=== PATIENT | female | born 1955 | race Caucasian/White ===

== ENCOUNTER 2024-12-03 11:40 | Outpatient (AMB) | payer MEDICARE, SELFPAY ==
--- NOTE | 2024-12-03 11:46 | MHC.OFFWIV ---
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 Patient Tobacco Use Status: Never used Tobacco Allergies lisinopril Adverse Reaction (Mild, Uncoded 12/03/24 11:47) cough Do you need a note to return to daycare/school/sports/work: No HPI HPI Comments History of Present Illness Details History - The patient is a 68-year-old female presenting with chronic cough, hoarse voice, and symptoms suggestive of allergies. - She reports these symptoms have persisted since her arrival at her children's home on November 08 and have included nasal congestion and watery, sticky eyes. - Despite her utilization of Cetirizine (Zyrtec), she experiences only slight nasal decongestion, with symptoms unabated. - She reports no associated shortness of breath, chest pain, or dizziness. - A family history of similar symptoms in her grandson, considered to be linked to potential exposure to mold, was noted, yet symptoms persist despite relocation to another residence. - Environmental factors, particularly exposure to an allerg[place] or a mold-contaminated residence, are thought to contribute to her symptoms. - The patient has a thyroid disorder managed with levothyroxine, with her last medication adjustment a year ago. - She has observed elevated heart rates, fluctuating between 90-125 bpm, yet has not been recently assessed by her physician, with undetermined links to thyroid imbalance. Physical Exam General: Cooperative, healthy appearing, comfortable and no acute distress Orientation/consciousness: Patient oriented x3 Limitations: No limitations Head: Normal to inspection Ears: Hearing grossly normal bilaterally, external ears normal and TM's with cerumen bilaterally Nose: Normal external nose present, Normal nares present and No nasal discharge present Face and sinus: Normal facial exam and Yes sinuses nontender Mouth: Normal oral and palatal mucosa present and moist mucous membranes Throat: Yes tonsils normal, Yes uvula midline. Posterior oropharynx erythema, cobblestoning present Eyes: Appearance normal, both eyes and all related structures, Neck: Normal visual inspection Respiratory: Clear to auscultation bilaterally. Normal respiratory effort, able to speak in complete sentences, no respiratory distress, not tachypneic, no tripod positioning and no use of accessory muscles Cardiovascular: tachycardic rate and regular rhythm. Normal S1 and S2 Skin: No rashes or lesions noted Neuro: Patient oriented x3 Extremities: Normal to inspection and Yes no clubbing, cyanosis or edema PFSH Social History Patient Tobacco Use Status: Never used Tobacco Review of Systems Const All systems reviewed & are unremarkable except as noted in HPI and below Physical Exam Vital Signs: Last Vital Signs Temp 99 F 12/03/24 11:48 Pulse 120 H 12/03/24 11:48 BP 120/76 12/03/24 11:48 Pulse Ox 96 12/03/24 11:48 Oxygen Delivery Method Room Air 12/03/24 11:48 Assessment & Plan Assessment & Plan (1) Seasonal allergic rhinitis: Code(s): J30.2 - Other seasonal allergic rhinitis Qualifiers: Allergic rhinitis trigger: unspecified Qualified Code(s): J30.2 - Other seasonal allergic rhinitis Plan: VSS, pt well appearing and PE remarkable for cobblestoning. The patient's chronic cough, nasal congestion, and associated symptoms are consistent with allergic rhinitis, likely aggravated by environmental exposure. An increased frequency of Cetirizine Zyrtec) to twice daily is recommended with the potential switch to Xyzal Levocetirizine) if necessary, while she is advised to use a nasal saline spray to maintain nasal moisture and relieve congestion. Patient was informed and verbally consented to the use of an ambient scribe for clinic note documentation during this visit (2) Sinus tachycardia: Code(s): R00.0 - Tachycardia, unspecified Plan: Adjustments to her levothyroxine treatment should be considered with her primary care provider upon returning home, especially to address the possible contribution to her tachycardia. Current tachycardia is acknowledged, with heart rate adjustments expected post-environmental factor resolution, requiring further evaluation in conjunction with her primary care guidance. Coding Level of Care Code New Pt Level 4 (24035) Diagnoses Seasonal allergic rhinitis, unspecified trigger J30.2 Allergic rhinitis trigger: unspecified Sinus tachycardia R00.0
[2024-12-03 11:48] VITALS: BP 120/76; PULSE 115; TEMP 37.2; O2SAT 96
--- OUTSIDE RECORDS SUMMARY | 2024-12-03 14:11 | XMS_ITS | Referral Summary ---
Author Organization [facility] Address [address] [place] [id number] Care Team Providers Care Manager Strategic Alliances Name Role Phone Stacey Henderson MD Primary Care Provider [phone] Encounters Date Type Department Care Team Description 11/23/2024 10:46 PM EDT - 11/23/2024 11:59 PM EDT Hospital Encounter [facility] [place] [address] [address] Stacey Henderson MD Discharge Disposition: Home or Self Care 11/16/2024 Refill [facility] [address] [place] [phone] Stacey Henderson MD Medication Refill 11/06/2024 Refill [facility] [address] [place] [phone] Stacey Henderson MD Medication Refill 10/23/2024 2:15 PM EDT Office Visit [facility] [address] [place] [phone] Stacey Henderson MD 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); Primary hypertension; Generalized anxiety disorder; Throat clearing 10/22/2024 Travel 10/15/2024 Travel 10/12/2024 Travel 10/11/2024 Refill [facility] [address] [place] [phone] Stacey Henderson MD Medication Refill 10/05/[address] [place] [phone] Staecy Henderson MD Medication Refill 10/04/2024 Refill [facility] [address] [place] [phone] Stacey Henderson MD Medication Refill 09/29/[address] [place] [phone] Stacey Henderson MD Medication Refill 09/10/[address] [place] [phone] Stacey Henderson MD Medication Refill 09/06/[address] [place] [phone] Stacey Henderson MD Medication Refill from Last 3 Months Allergies Active Allergy Reactions Criticality Noted Date Comments Lisinopril Low 02/01/2022 Cough Medications cholecalciferol (Vitamin D3) 2,000 unit tablet Take 4,000 Units by mouth daily. Active montelukast (SINGULAIR) 10 mg tabletIndication s:Throat clearing,Mild intermittent asthma without complication (CMD) TAKE 1 TABLET BY MOUTH EVERY DAY AT NIGHT 90 tablet 3 03/27/20 24 Active denosumab (Prolia) 60 mg/mL syrg syringe Inject 60 mg under the skin once. Active citalopram (CeleXA) 20 mg tabletIndication s:Generalized anxiety disorder TAKE 1 TABLET BY MOUTH EVERY DAY 90 tablet 09/30/19 25 Active tretinoin (Retin-A) 0.05 % cream APPLY TO AFFECTED AREA EVERY DAY AT BEDTIME 45 g 10/04/19 25 Active dextroamphetamin e-amphetamine (ADDERALL) 5 mg tablet Take 1 tablet (5 mg total) by mouth 2 (two) times a day. 60 tablet 10/24/19 25 Active clonazePAM (KlonoPIN) 1 mg tabletIndication s:Generalized anxiety disorder Take 1 tablet (1 mg total) by mouth daily as needed for anxiety. 30 tablet 10/24/19 25 Active meloxicam (MOBIC) 15 mg tablet TAKE 1 TABLET (15 MG TOTAL) BY MOUTH DAILY. 30 tablet 11/07/19 25 Active levothyroxine (SYNTHROID) 75 mcg tablet TAKE 1 TABLET BY MOUTH EVERY DAY 90 tablet 11/19/19 25 Active losartan (COZAAR) 50 mg tablet Take 1 tablet (50 mg total) by mouth daily. 30 tablet 11/23/19 25 Active levothyroxine (SYNTHROID) 75 mcg tablet TAKE 1 TABLET BY MOUTH EVERY DAY 90 tablet 1 05/13/20 24 025 Discontinued meloxicam (MOBIC) 15 mg tablet TAKE 1 TABLET (15 MG TOTAL) BY MOUTH DAILY. 30 tablet 10/07/19 25 025 Discontinued losartan (COZAAR) 50 mg tablet Take 1 tablet (50 mg total) by mouth daily. 90 tablet 1 10/24/19 25 025 Discontinued(Re order) benzonatate (TESSALON) 200 mg capsule Take 1 capsule (200 mg total) by mouth 3 (three) times a day as needed for cough. 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 Anxiety disorder 10/03/2022 Diverticular disease 10/03/2022 Hypertension 10/03/2022 Hypothyroidism 10/03/2022 Prediabetes 10/03/2022 Laryngopharyngeal reflux 02/01/2022 Throat clearing 02/01/2022 Right shoulder pain 08/02/2021 Immunizations Immunization Administration Dates Next Due Pneumococcal Conjugate Vacci ne 20-Valent (PREVNAR-20) 6 wks+ 10/03/2022 Social History Tobacco Use Types Packs/Day Years Used Date Smoking Tobacco: Never Passive Smoke Exposure: Never Smokeless Tobacco: Never Tobacco Cessation:Counseling Given: Not Answered Comments:Never smoked Alcohol Use Standard Drinks/Week Comments Never 0 (1 standard drink = 0.6 oz pur e alcohol) Utilities Answer Date Recorded In the past 12 months has th e electric, gas, oil, or water company threatened to shut off services in your home? No 04/24/2023 Social Connection and Isolation Panel [NHANES] A nswer Date Recorded Frequency of Communication with Friends and Fami ly Not on file 09/25/2022 Frequency of Social Gatherings with Friends and Family Not on file 09/25/2022 Attends Gnosticist Services Not on file 09/25 Active Member of Clubs or Organizations Not on f ile 09/25/2022 Attends Club or Organization Meetings Not on luciano e 09/25/2022 Are you , , di vorced, , never , or living with a partner? 09/25/2022 AUDIT-C Answer Date Recorded Frequency of Alcohol Consumption Not on file 09/25/2022 Q2: How many drinks containi ng alcohol do you have on a typical day when you are drinking? Patient does not drink Q3: How often do you have si x or more drinks on one occasion? Never 09/25/2022 PHQ-2 Answer Date Recorded Patient Health Questionnaire-2 Score 1 02/14/2024 [facility] - Occupational Stress Questionnaire Answer Date Recorded Do you feel stress - tense, restless, nervous, or anxious, or unable to sleep at night because your mind is troubled all the time - these days? To some extent 09/25/2022 Exercise Vital Sign Answer Date Recorde d On average, how many days pe r week do you engage in moderate to strenuous exercise (like a brisk walk)? 6 days Minutes of Exercise per Session Not on file 09/25/2022 Hunger Vital Sign Answer Date Recorded Within the past 12 months, y ou worried that your food would run out before you got the money to buy more. Never true 04/24/20 23 Within the past 12 months, t he food you bought just didn't last and you didn't have money to get more. Never true 04/24/2023 PRAPARE - Transportation Answer Date Re corded In the past 12 months, has l ack of transportation kept you from medical appointments or from getting medications? No 04/14 In the past 12 months, has l ack of transportation kept you from meetings, work, or from getting things needed for daily living? No 04/24/2023 Housing Stability Vital Sign Answer Mehdi e Recorded In the last 12 months, was t here a time when you were not able to pay the mortgage or rent on time? No 04/24/2023 In the last 12 months, how many places have you lived? 2 04/24/2023 In the last 12 months, was t here a time when you did not have a steady place to sleep or slept in a senior care (including now)? No 04/24/2023 PHQ-9 Answer Date Recorded Patient Health Questionnaire-9 Score 2 02/14/2024 Transportation Answer Date Recorded In the past 12 months, has l ack of reliable transportation kept you from medical appointments, meetings, work or from getting things needed for daily living? No 10/12/2024 Living Situation Answer Date Recorded What is your living situation today? [facility] place to live 10/12/[address] you li ve. Do you have problems with any of the following? Choose all that apply: None/None on this list 10/12/2024 Food vital sign Answer Date Recorded Within the past 12 months, y ou worried that your food would run out before you got money to buy more Never true 10/12/2024 Within the past 12 months, t he food you bought just didn't last and you didn't have money to get more. Never true 10/12/2024 Utilities Answer Date Recorded In the past 12 months has th e electric, gas, oil, or water company threatened to shut off services in your home? No 10/12/2024 Comments Unknown Sex and Gender Information Value Date Recorded Sex Assigned at Female 08/19/2021 7:20 AM EST Legal Sex Female 3:11 PM EST Gender Identity Not on file Sexual Orientation Straight 08/11/2022 1: 02 PM EST Last Filed Vital Signs Vital Sign Reading Time Taken Comments Blood Pressure 150/90 10/23/2024 2:36 PM EDT Pulse 85 10/23/2024 2:20 PM EDT Temperature 36.4 ??C (97.5 ??F) 10/23/2024 2:20 PM ED T Respiratory Rate - - Oxygen Saturation 97% 10/23/2024 2:20 PM EDT Inhaled Oxygen Concentration - - Weight 71.5 kg (157 lb 9.6 oz) 10/23/2024 2:20 P M EDT Height 157.5 cm (5' 2 ) 02/14/2024 10:51 AM EDT Body Mass Index 28.83 02/14/2024 10:51 AM EDT Plan of Treatment Not on file Procedures Procedure Name Priority Date/Time Associated Diagnosis Comments COMPREHENSIVE METABOLIC PANEL Routine 06/26/2024 2:22 PM EST Primary hypertension MG BREAST SCREENING CRUZ BILAT Routine 11/25/2023 8:54 AM EDT DEXA SCAN 1 OR MORE SITES AXIAL Routine 11/24/2022 8:59 AM EDT from Last 3 Months or Most Recently Relevant to Health Maintenance Results * Comprehensive Metabolic Panel (06/26/2024 2:22 PM EST) Sodium 137 134 - 143 mmol/L 06/26/2024 11:36 PM EST [facility] Potassium 4.3 3.5 - 5.1 mmol/L 06/26/2024 11:36 PM EST [facility] Chloride 103 98 - 107 mmol/L 06/26/2024 11:36 PM EST [facility] CO2 24 21 - 31 mmol/L 06/26/2024 11:36 PM EST [facility] Anion Gap 10 3 - 15 mmol/L 06/26/2024 11:36 PM EST [facility] Glucose, Random 113 70 - 125 mg/dL 06/26/2024 11:36 PM [facility] Blood Urea Nitrogen (BUN) 25 8 - 30 mg/dL 06/26/2024 11:36 PM EST [facility] Creatinine 0.70 0.51 - 0.95 mg/dL 06/26/2024 11:36 PM EST [facility] eGFR >90 >59 mL/min/1. 73m2 06/26/2024 11:36 PM EST [facility] Comment:GFR estimated by CKD -EPI equations (NKF 2020). Recommend confirmation of eGFR using Cystatin C based eGFR in complex cases for clinical decision-making. Albumin 4.5 3.7 - 4.8 g/dL 06/26/2024 11:36 PM EST [facility] Total Protein 7.5 6.3 - 8.3 g/dL 06/26/2024 11:36 PM EST [facility] Bilirubin, Total 0.3 0.3 - 1.0 mg/dL 06/26/2024 11:36 PM EST [facility] Alkaline Phosphatase (ALP) 64 38 - 120 U/L 06/26/2024 11:36 PM EST [facility] Aspartate Aminotransferase (AST) 17 13 - 39 U/L 06/26/2024 11:36 PM EST [facility] Alanine Aminotransferase (ALT) 19 7 - 52 U/L 06/26/2024 11:36 PM EST [facility] Calcium 9.8 8.6 - 10.3 mg/dL 06/26/2024 11:36 PM [facility] BUN/Creatinine Ratio 06/14 11:36 PM EST [facility] Comment:Creatinine is normal , ratio is not clinically indicated. Blood Venous structure / Unknown Venipuncture / Unknown 06/26/2024 2:22 PM EST 06/26/2024 2:22 PM EST Stacey Henderson MD LAB BLOOD ORDERABLES F inal Result [facility] [address] [place] [address], * MG Breast Screening Cruz Bilat (11/25/2023 8:54 AM EDT) Anatomical Region Laterality Modality Breast Bilateral Mammography 11/23/2023 3:33 PM EDT Narrative 11/23/2023 3:46 PM EDT STACEY HENDERSON MD ?[facility] ?[phone] ? [address] ? [address] ? [place] [address] ?1955 ? Patient ??MARLYN MATOS ? Jkt# ? Exam Date ??11-23-2023 03 30 PM ?Visit ??[id number] ?? Order ??[id number] Screening Mammogram with Cruz BILATERAL ??November 23, 2023 - [id number] PATIENT HISTORY Postmenopausal. Patient used Estrogen for 4 years. REASON FOR EXAM ??Screening ?? asymptomatic . COMPARISON ?? 03-14-2019 Bilateral Screening 3D-Tomosynthesis, Unknown. 11-08-2021 Bilateral Screening Mammogram with Cruz BILATERAL, BAT. 11-09-2022 Bilateral Screening Mammogram with Cruz BILATERAL, [facility]. DENSITY ??The breasts are heterogeneously dense, which may obscure small masses. ?? Volpara score 7.9 FINDINGS ?? Bilateral Screening Mammogram with Tomosynthesis was performed. Analyzed by CAD. No evidence of breast cancer. RECOMMENDATION ?? Screening 3D-Tomosynthesis of both breasts in 1 year. BIRAD 1 ??Negative Seat ??[id number] Report Electronically signed by ??Emely Yuan, DO Completed By ??Angelique RAMÍREZ ??2023-11-25 08 53 00 ?? Procedure Note Emely Yuan DO - 11/25/2023 MD SHOAIB JENKINS [facility] [phone] [place] [id number]1956 Patient MARLYN MATOS# Exam Date 11-23-2023 03 30 PM [id number] Order [id number] Screening Mammogram with Cruz BILATERAL November 23, 2023 - PATIENT HISTORY Postmenopausal. Patient used Estrogen for 4 years. REASON FOR EXAM Screening asymptomatic . COMPARISON 03-14-2019 Bilateral Screening 3D-Tomosynthesis, Unknown. [id number] Screening Mammogram with Cruz BILATERAL, BAT. 11-09-2022 Bilateral Screening Mammogram with TomoBILATERAL, [facility]. DENSITY The breasts are heterogeneously dense, which may obscure smallmasses. Volpara score 7.9 FINDINGS Bilateral Screening Mammogram with Tomosynthesis was performed. Analyzedby CAD. No evidence of breast cancer. RECOMMENDATION Screening 3D-Tomosynthesis of both breasts in 1 year. BIRAD 1 Negative Seat [id number] Report Electronically signed by Emely Yuan DO Completed By Angelique RAMÍREZ 2023-11-25 08 53 00 us Neg Scrn Mammo Clt Rad AH IMG MG PROCEDURES Fatmata l Result * DEXA Scan 1 or More Sites Axial (11/24/2022 8:59 AM EDT) Anatomical Region Laterality Modality Radiographic Josie ging 11/15/2022 3:49 PM EDT Narrative 11/15/2022 3:49 PM EDT STACEY HENDERSON MD ?[facility] [facility] ?780/[address] ? [address] ? [address] ? [place] [address] ? : 1955 ? Patient: MARLYN MATOS ? Jkt#: ? Exam Date: 11/15/2022 03:40 PM ?Visit: [id number] ?? Order: [id number] DATE OF SERVICE: 11/15/2022 3:49 pm EXAMINATION PERFORMED: Bone Mineral Density Axial CLINICAL HISTORY: 66 year old female. Postmenopausal. Screening. Surgical instrumentation right proximal femur. CURRENT STUDY: Spine: 1-4 * BMD (g/cm2) : 0.899 * T-score : -1.3 * Z-score : 0.5 Femur: LTn * BMD (g/cm2) : 0.558 * T-score : -2.6 * Z-score : -1.0 Forearm: NA * BMD (g/cm2) : NA * T-score : NA * Z-score : NA COMMENTS: None Precision of instrumentation has been considered with a 95% coefficient of variation and least significant change of +/- 5%. Study performed on [employer] DXA system. FRACTURE RISK: The WHO fracture risk calculator (FRAX) predicts a 10 year risk of major osteoporotic fracture of 14% and of hip fracture, 3.2%. These are below the osteoporotic fracture and above the hip fracture NOF-recommended treatment thresholds of 20% and 3% respectively, applicable in postmenopausal patients with osteopenia, who have not previously received osteoporosis medical therapy. FRAX risk is calculated based on data provided by the patient at time of scan. ??Clinical confirmation of risk factors is recommended. Although informative, the FRAX risk calculator is a tool, and other risk factors not included in FRAX calculation, such as fall risk or spine BMD, as well as clinicians judgment and patient preferences should be considered to drive therapeutic decisions. DIAGNOSIS: Osteoporosis RECOMMENDATION: Continued Surveillance in 2 years. Thank you for the courtesy of this referral. *World Health Organization Definitions for T-Score Values: Normal= at or above - 1.0 SD; Osteopenia= between -1.0 and -2.5 SD; Osteoporosis= at or below -2.5. WHO criteria based on young adult reference database. Seat: [id number] Dictated by: Juan Pappas Report Electronically signed by: Juan Pappas MD Completed By: Augusta Goodson DT: 2022-11-24 08:59:00 ?? Procedure Note Juan Pappas MD - 11/24/2022 STACEY HENDERSON, [facility] [address] [place] [address] :1955 Patient: MARLYN MATOS#: Exam Date: 11/15/2022 03:40 PM Visit:[id number] Order: [id number] DATE OF SERVICE: 11/15/2022 3:49 pm EXAMINATION PERFORMED: Bone Mineral Density Axial CLINICAL HISTORY: 66 year old female. Postmenopausal. Screening. Surgical instrumentationright proximal femur. CURRENT STUDY: Spine: 1-4 * BMD (g/cm2) : 0.899 * T-score : -1.3 * Z-score : 0.5 Femur: LTn * BMD (g/cm2) : 0.558 * T-score : -2.6 * Z-score : -1.0 Forearm: NA * BMD (g/cm2) : NA * T-score : NA * Z-score : NA COMMENTS: None Precision of instrumentation has been considered with a 95% coefficient ofvariation and least significant change of +/- 5%. Study performed on [employer] DXA system. FRACTURE RISK: The WHO fracture risk calculator (FRAX) predicts a 10 year risk of majorosteoporotic fracture of 14% and of hip fracture, 3.2%. These are belowthe osteoporotic fracture and above the hip fracture NOF-recommendedtreatment thresholds of 20% and 3% respectively, applicable in postmenopausal patients with osteopenia, whohave not previously received osteoporosis medical therapy. FRAX risk is calculated based on data provided by the patient at time ofscan. Clinical confirmation of risk factors is recommended. Although informative, the FRAX risk calculator is a tool, and other riskfactors not included in FRAX calculation, such as fall risk or spine BMD,as well as clinicians judgment and patient preferences should beconsidered to drive therapeutic decisions. DIAGNOSIS: Osteoporosis RECOMMENDATION: Continued Surveillance in 2 years. Thank you for the courtesy of this referral. *World Health Organization Definitions for T-Score Values: Normal= at orabove - 1.0 SD; Osteopenia= between -1.0 and -2.5 SD; Osteoporosis= at orbelow -2.5. WHO criteria based on young adult referencedatabase. Seat: [id number] Dictated by: Juan Pappas Report Electronically signed by: Juan Pappas MD Completed By: Augusta Goodson DT: 2022-11-24 08:59:00 Stacey Henderson MD IMG DEXA PROCEDURES Fi nal Result from Last 3 Months or Most Recently Relevant to Health Maintenance Insurance [facility] MEDICARE COMPLETE [place] [facility] MEDICARE COMPLETE [place] Care Teams Manager Strategic Alliances Relationship Specialty Start Date End Date Stacey Henderson MD [address] [place] [phone] PCP - General Family Medicine 08/24/21
--- OUTSIDE RECORDS SUMMARY | 2024-12-03 14:11 | XMS_ITS | Clinical Summary ---
Author Organization [facility] Address [address] [place] [address] Care Team Providers Care Brakeshoe Repairer Name Role Phone Stacey Henderson MD Primary Care Provider +1 [phone] Allergies Active Allergy Reactions Criticality Noted Date [...] as needed for cough. 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 Anxiety disorder 10/03/2022 Diverticular disease 10/03/2022 Hypertension 10/03/2022 Hypothyroidism 10/03/2022 Prediabetes 10/03/2022 Laryngopharyngeal reflux 02/01/2022 Throat clearing 02/01/2022 Right shoulder pain 08/02/2021 Encounters Date Type Department Care Team Description 11/23/2024 10:46 PM EDT - 11/23/2024 11:59 PM EDT Hospital Encounter [facility] [address] [facility] [address] [address] Stacey Henderson MD Discharge Disposition: Home or Self Care 11/16/[address] [place] [phone] Stacey Henderson MD Medication Refill 11/06/[address] [place] [phone] Stacey Henderson MD Medication Refill 10/23/2024 2:15 PM EDT Office Visit [address] [place] [address] [place] [address] Stacey Henderson MD 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); Primary hypertension; Generalized anxiety disorder; Throat clearing 10/22/2024 Travel 10/15/2024 Travel 10/12/2024 Travel 10/11/2024 Refill [facility] [address] [place] [address] Stacey Henderson MD Medication Refill 10/05/2024 Refill [facility] [address] [place] [phone] Stacey Henderson MD Medication Refill 10/04/2024 Refill [facility] [address] [place] [phone] Stacey Henderson MD Medication Refill 09/29/2024 Refill [facility] [address] [place] [phone] Stacey Henderson MD Medication Refill 09/10/2024 Refill [facility] [address] [place] [phone] Stacey Henderson MD Medication Refill 09/06/2024 Refill [facility] [address] [place] [phone] Stacey Henderson MD Medication Refill from Last 3 Months Immunizations Immunization Administration Dates Next Due Pneumococcal Conjugate Vacci ne 20-Valent (PREVNAR-20) 6 wks+ 10/03/2022 Family History Medical History Relation Comments Cancer Brother 1 Early Brother 1 Diabetes Brother 2 Hypertension Brother 2 Alcohol abuse Father Cancer Father Diabetes Father Depression Mother Hypertension Mother Stroke Mother Asthma Son Relation Status Comments Brother 1 Brother 2 Father Mother Son Social History Tobacco Use Types Packs/Day Years [...] and Family Not on file 09/25/2022 Attends [employer] Not on file 09/25 Active Member [...] Recorded Patient Health Questionnaire-2 Score 1 02/14/2024 [facility] - Occupational Stress Questionnaire Answer Date [...] place to sleep or slept in a alf (including now)? No 04/24/2023 PHQ-9 Answer Date Recorded Patient Health Questionnaire-9 Score 2 02/14/2024 Transportation Answer Date Recorded In the past 12 months, has l ack of reliable transportation kept you from medical appointments, meetings, work or from getting things needed for daily living? No 10/12/2024 Living Situation Answer Date Recorded What is your living situation today? I have a [facility] place to live 10/12/2024 Think about the [...] 02/14/2024 10:51 AM EDT Plan of Treatment Health Maintenance Due Date Last Done Comments Hepatitis C Screening 12/30/1973 DTaP/Tdap/Td Vaccines (1 - Tdap) 12/30/1974 CT Colonography 12/30/2000 FIT-DNA 12/30/2000 FIT 12/30/2000 FOBT 12/30/2000 Sigmoidoscopy 12/30/2000 ZOSTER VACCINE (1 of 2) 12/30/2005 Adult RSV (60+ Years or ) (1 - Risk 60-74 years 1-dose series) 2015 COVID-19 Vaccine ( - season) 2024 Depression Monitoring 08/16/2024 02/14/2024 Influenza Vaccine (#1) 2025 Postp oned from 03/14/2024 (Patient Refused) Comprehensive Annual Visit 02/13/202502/13, 02/14/2024, 10/03/2022, Additional history exists Medicare Annual Wellness (AWV) Subsequent Visits 02/13/2025 02/14/2024, 10/03/2022 Diabetes Screening 06/26/2025 06/26/2024, 0 11/27/2023, 07/13/2023, Additional history exists Breast Cancer Screening (Mammogram) 11/24/2025 11/25/2023, 11/10/2022, 11/09/2022, Additional history exists Colonoscopy 08/13/2030 Colorectal Cancer Screening 08/13/2030 Pneumococcal Vaccine for Ages 50+ Completed 10/03/2022 Bone Density Scan Discontinued 11/24/2022 Depression Screening Discontinued 02/14/2024, 02/14/20 Medicare Annual Wellness (AWV) Initial Visit Discontinued 02/14/2024, 10/03/2022 HIB Vaccines Aged Out No longer eligi ble based on patient's age to complete this topic HPV Vaccines Aged Out No longer eligi ble based on patient's age to complete this topic Hepatitis A Vaccines Aged Out No long er eligible based on patient's age to complete this topic Hepatitis B Vaccines Aged Out No long er eligible based on patient's age to complete this topic IPV Vaccines Aged Out No longer eligi ble based on patient's age to complete this topic Meningococcal B Vaccine Aged Out No l onger eligible based on patient's age to complete this topic Meningococcal Conjugate (ACWY) Vaccine Aged Out No longer eligible based on patient's age to complete this topic Rotavirus Vaccines Aged Out No longer eligible based on patient's age to complete this topic Procedures Procedure Name Priority Date/Time Associated Diagnosis [...] 70 - 125 mg/dL 06/26/2024 11:36 PM EST [facility] Blood Urea Nitrogen (BUN) 25 8 - 30 mg/dL 06/26/2024 11:36 PM EST [facility] Creatinine 0.70 0.51 - 0.95 mg/dL 06/26/2024 11:36 PM EST [facility] eGFR >90 >59 mL/min/1. 73m2 06/26/2024 11:36 PM EST [facility] Comment:GFR estimated by CKD -EPI equations (NKF 2020). Recommend confirmation of eGFR using Cystatin C based eGFR in complex cases for clinical decision-making. Albumin 4.5 3.7 - 4.8 g/dL 06/26/2024 11:36 PM EST [facility] Total Protein 7.5 6.3 - 8.3 g/dL 06/26/2024 11:36 PM [facility] Bilirubin, Total 0.3 0.3 - 1.0 mg/dL 06/26/2024 11:36 PM EST [facility] Alkaline Phosphatase (ALP) 64 38 - 120 U/L 06/26/2024 11:36 PM EST [facility] Aspartate Aminotransferase (AST) 17 13 - 39 U/L 06/26/2024 11:36 PM EST [facility] Alanine Aminotransferase (ALT) 19 7 - 52 U/L 06/26/2024 11:36 PM EST [facility] Calcium 9.8 8.6 - 10.3 mg/dL 06/26/2024 11:36 PM [facility] BUN/Creatinine Ratio 06/14 11:36 PM EST [facility] Comment:Creatinine is normal , ratio is not clinically indicated. Blood Venous structure / Unknown Venipuncture / Unknown 06/26/2024 2:22 PM EST 06/26/2024 2:22 PM EST Stacey Henderson MD LAB BLOOD ORDERABLES F inal Result [facility] [address] [place] [address], * MG Breast Screening Cruz Bilat (11/25/2023 8:54 AM EDT) Anatomical Region Laterality Modality Breast Bilateral Mammography 11/23/2023 3:33 PM EDT Narrative 11/23/2023 3:46 PM EDT STACEY HENDERSON MD ?[facility] ? [facility] ?[phone] ? [address] ? [address] ? [place] [address] ?[facility] ? Patient ??MARLYN MATOS ? Jkt# ? Exam Date ??11-23-2023 03 30 PM ?Visit ??[id number] ?? Order ??[id number] Screening Mammogram with Cruz BILATERAL ??November 23, 2023 - [id number] PATIENT HISTORY Postmenopausal. Patient used Estrogen for 4 years. REASON FOR EXAM ??Screening ?? asymptomatic . COMPARISON ?? 03-14-2019 Bilateral Screening 3D-Tomosynthesis, Unknown. 11-08-2021 Bilateral Screening Mammogram with Cruz BILATERAL, BAT. 11-09-2022 Bilateral Screening Mammogram with Cruz BILATERAL, BRENDON. DENSITY ??The breasts are heterogeneously dense, which may obscure small masses. ?? Volpara score 7.9 FINDINGS ?? Bilateral Screening Mammogram with Tomosynthesis was performed. Analyzed by CAD. No evidence of breast cancer. RECOMMENDATION ?? Screening 3D-Tomosynthesis of both breasts in 1 year. BIRAD 1 ??Negative Seat ??[id number] Report Electronically signed by ??Emely Yuan, Completed By ??Angelique RAMÍREZ ??2023-11-25 08 53 00 ?? Procedure Note Emely Yuan, - 11/25/2023 MD SHOAIB JENKINS [facility] [phone] [id number] [place] [id number] Patient MARLYN MATOS Jkt# Exam Date 11-23-2023 03 30 PM [id number] Order [id number] Screening Mammogram with Cruz BILATERAL November 23, 2023 - PATIENT HISTORY Postmenopausal. Patient used Estrogen for 4 years. REASON FOR EXAM Screening asymptomatic . COMPARISON 03-14-2019 Bilateral Screening 3D-Tomosynthesis, Unknown. [id number] Screening Mammogram with Cruz BILATERAL, BAT. 11-09-2022 Bilateral Screening Mammogram with TomoBILATERAL, [facility]. DENSITY The breasts are heterogeneously dense, which may obscure smallmasses. Volpara score 7.9 FINDINGS Bilateral Screening Mammogram with Tomosynthesis was performed. Analyzedby CAD. No evidence of breast cancer. RECOMMENDATION Screening 3D-Tomosynthesis of both breasts in 1 year. BIRAD 1 Negative Seat [id number] Report Electronically signed by Emely Yuan DO Completed By Angelique RAMÍREZ 2023-11-25 08 53 00 us Neg Scrn Mammo Clt Rad AH IMG MG PROCEDURES Fatmata l Result * DEXA Scan 1 or More Sites Axial (11/24/2022 8:59 AM EDT) Anatomical Region Laterality Modality Radiographic Josie ging 11/15/2022 3:49 PM EDT Narrative 11/15/2022 3:49 PM EDT STACEY HENDERSON MD ?[facility] ? [facility] ?[address] ? [address] ? [address] ? [place] [address] ? : 1955 ? Patient: MARLYN MATOS ? Jkt#: ? Exam Date: 11/15/2022 03:40 PM ?Visit: [id number] ?? Order: [id number] DATE OF SERVICE: 11/15/2022 3:49 pm EXAMINATION [...] change of +/- 5%. Study performed on [email or web address] DXA system. FRACTURE RISK: The WHO fracture [...] based on young adult reference database. Seat: [id number] Dictated by: Juan Pappas Report Electronically signed by: Juan Pappas MD Completed By: Augusta Goodson DT: 2022-11-24 08:59:00 ?? Procedure Note Juan Pappas MD - 11/24/2022 STACEY HENDERSON, [facility] [address] [place] [address] :1955 Patient: MARLYN MATOS#: Exam Date: 11/15/2022 03:40 PM Visit:[id number] Order: [id number] DATE OF SERVICE: 11/15/2022 3:49 pm EXAMINATION [...] change of +/- 5%. Study performed on [email or web address] DXA system. FRACTURE RISK: The WHO fracture [...] criteria based on young adult referencedatabase. Seat: [id number] Dictated by: Juan Pappas Report Electronically signed by: Juan Pappas MD Completed By: Augusta Goodson DT: 2022-11-24 08:59:00 Stacey Henderson MD IMG DEXA PROCEDURES Fi nal Result from Last 3 Months or Most Recently Relevant to Health Maintenance Insurance [facility] AAR MEDICARE COMPLETE [place] UHC AARP [place] Member Subscriber Plan / Payer (Ef fective 2023-Present) Name:Marlyn Matos Relation to Subscriber:Self Name:Marlyn Matos Payer ID:[id number] (NAIC) Type:Medicare Advantage Address: [place] [phone] Care Teams Brakeshoe Repairer Relationship Specialty Start Date End Date Stacey Henderson MD [address] [place] [phone] PCP - General Family Medicine 08/24/21
--- OUTSIDE RECORDS SUMMARY | 2024-12-03 14:12 | XMS_ITS | Encounter Summary ---
Author Organization [facility] Address [address] [place] [address] Care Team Providers Care Grinder Set Up Operator Thread Tool Name Role Phone Stacey Henderson MD Primary Care Provider +1 [phone] Encounter Details Date Type Department Care Team (Late st Contact Info) Description 12/02/2021 Conversion Encounter [facility] HISTORICAL DATA CONVERSIONS [address] [place] [address] Social History Tobacco Use Types Packs/Day Years Used Date Smoking Tobacco: Never Assessed Comments Unknown Sex and Gender Information Value Date Recorded Sex Assigned at Female 08/19/2021 7:20 AM EST Legal Sex Female 3:11 PM EST Gender Identity Not on file Sexual Orientation Straight 08/11/2022 1: 02 PM EST documented as of this encounter Miscellaneous Notes * Legacy Communication - HISTORICAL PROVIDER, CONVERSION - 12/03/2021 2:23 PM EDT From: YOVANI SMITH ([facility]) To: STACEY HENDERSON; Sent: 12/03/2021 14:23:48 EDT Subject: FW: Dr. Stacey Henderson - [facility]: Dr. Stacey Henderson - [facility]: Lisinopril and persistent cough Please see patient response From: GONZÁLEZ MATOS To: Dr. Satcey Henderson - [facility] ([facility]) Sent: 12/02/2021 08:01 p.m. EDT Subject: RE: Dr. Stacey Henderson - [facility]: Lisinopril and persistent cough Thank you for your message. It has been successfully sent to the appropriate care team. I guess it could be called a dry cough; it???s not a productive cough, I???m constantly clearing mythroat but there???s nothing there. If you think the other medication could get rid of this cough I???d like to try it. Addendum by STACEY HENDERSON MD on December 02, 2021 19:33:48 EDT From: STACEY HENDERSON MD To: GONZÁLEZ MATOS Sent: 12/02/2021 19:33:48 EDT Subject: RE: Dr. Stacey Henderson - [facility]: Lisinopril and persistent cough Yes, Lisinopril can cause a DRY cough. Is your cough dry? If so, we can make it go away and switch to Losartan. Let me know, Sincerely, Dr. Stacey Henderson From: JESSICA CRAIG LPN ([facility]) To: STACEY HENDERSON; Sent: 12/02/2021 11:52:09 EDT Subject: FW: Dr. Stacey Henderson - [facility]: Lisinopril and persistent cough From: GONZÁLEZ MATOS To: Dr. Stacey Henderson - [facility] ([facility]) Sent: 12/01/2021 08:57 p.m. EDT Subject: Lisinopril and persistent cough Thank you for your message. It has been successfully sent to the appropriate care team. Hi , I have been taking lisinopril for about 6 years. I have a non-stop persistent cough and clearing ofthe throat where I feel mucous. I have read that lisinopril is likely causing this. Is there another medication we could try to end this coughing? Thank you, González Matos Submitted: Order:losartan (losartan 50 mg oral tablet) 1 tablet ORAL Daily Qty: 90 tablet Refills: 0 Substitutions Allowed Route To Pharmacy - [facility]/pharmacy #[id number] Signed by STACEY HENDERSON MD 12/03/2021 14:29:00 EDT Submitted: Discontinue:lisinopril (lisinopril 10 mg oral tablet) Signed by STACEY HENDERSON MD 12/03/2021 14:29:00 EDT From: STACEY HENDERSON MD To: GONZÁLEZ MATOS Sent: 12/03/2021 14:30:39 EDT Subject: RE: Dr. Stacey Henderson - [facility]: Dr. Stacey Henderson - [facility]: Lisinopril and persistent cough González, I sent in Losartan for you to take instead of your lisinopril. Please check your blood pressure in 2 weeks (or make a nurse visit to check it) and let me know the reading. Sincerely, Dr. Stacey Henderson * Legacy Communication - HISTORICAL PROVIDER, CONVERSION - 12/02/2021 11:52 AM EDT Entered by JESSICA CRAIG LPN on December 02, 2021 11:52:41 EDT Duplicate From: GONZÁLEZ MATOS To: Dr. Stacey Henderson - [facility] ([facility]) Sent: 12/01/2021 08:56 p.m. EDT Subject: Lisinopril Thank you for your message. It has been successfully sent to the appropriate care team. Hi , I have been taking lisinopril for about 6 years. I have a non-stop persistent cough and clearing ofthe throat where I feel mucous. I have read that lisinopril is likely causing this. Is there another medication we could try to end this coughing? Thank you, González Matos * Legacy Communication - HISTORICAL PROVIDER, CONVERSION - 12/02/2021 11:52 AM EDT From: JESSICA CRAIG LPN ([facility]) To: STACEY HENDERSON; Sent: 12/02/2021 11:52:09 EDT Subject: FW: Dr. Stacey Henderson - [facility]: Lisinopril and persistent cough From: GONZÁLEZ MATOS To: Dr. Stacey Henderson - [facility] ([facility]) Sent: 12/01/2021 08:57 p.m. EDT Subject: Lisinopril and persistent cough Thank you for your message. It has been successfully sent to the appropriate care team. Hi , I have been taking lisinopril for about 6 years. I have a non-stop persistent cough and clearing ofthe throat where I feel mucous. I have read that lisinopril is likely causing this. Is there another medication we could try to end this coughing? Thank you, González Matos From: STACEY HENDERSON MD To: GONZÁLEZ MATOS Sent: 12/02/2021 19:33:48 EDT Subject: RE: Dr. Stacey Henderson - [facility]: Lisinopril and persistent cough Yes, Lisinopril can cause a DRY cough. Is your cough dry? If so, we can make it go away and switch to Losartan. Let me know, Sincerely, Dr. Stacey Henderson documented in this encounter Plan of Treatment Not on file documented as of this encounter Visit Diagnoses Not on filedocumented in this encounter Care Teams Grinder Set Up Operator Thread Tool Relationship Specialty Start Date End Date Stacey Henderson MD [address] [place] [phone] PCP - General Family Medicine 08/24/21 documented as of this encounter
--- OUTSIDE RECORDS SUMMARY | 2024-12-03 14:12 | XMS_ITS | Encounter Summary ---
Author Organization [facility] Address [address] [place] [address] Care Team Providers Care Sand Mill Grinder Name Role Phone Tamica Merida MD Primary Care Provider [phone] [phone] Encounter Details Date Type Department Care Team (Late st Contact Info) Description 08/26/2021 Conversion Encounter [facility] [employer] DATA CONVERSIONS [address] [place] [address] Social History Tobacco Use Types Packs/Day Years [...] Legacy Communication - HISTORICAL PROVIDER, CONVERSION - 08/26/2021 8:03 AM EST Entered by YOVANI SMITH on August 26, 2021 08:03:25 EST Refill sent 08/25/2021 From: GONZÁLEZ HESTER To: Dr. Tamica Merida - [facility] ([facility]) Sent: 08/25/2021 11:27 a.m. EST Subject: Thyroid Meds Thank you for your message. It has been successfully sent to the appropriate care team. Az Doctor, I am out of my thyroid meds. Could you please call in a new prescription for Levothoroxide 100mcg? Thank you! González * Legacy Communication - HISTORICAL PROVIDER, CONVERSION - 08/26/2021 8:03 AM EST Entered by YOVANI SMITH on August 26, 2021 08:03:25 EST Refill sent 08/25/2021 From: GONZÁLEZ HESTER To: Dr. Tamica Merida - [facility] ([facility]) Sent: 08/25/2021 11:27 a.m. EST Subject: Thyroid Meds Thank you for your message. It has been successfully sent to the appropriate care team. Hi Doctor, I am out of my thyroid meds. Could you please call in a new prescription for Levothoroxide 100mcg? Thank you! González documented in this encounter Plan of Treatment Not on file documented as of this encounter Visit Diagnoses Not on filedocumented in this encounter Care Teams Sand Mill Grinder Relationship Specialty Start Date End Date Tamica Merida MD [address] [place] [phone] PCP - General Family Medicine 08/24/21 documented as of this encounter
--- OUTSIDE RECORDS SUMMARY | 2024-12-03 14:12 | XMS_ITS | Encounter Summary ---
Author Organization [facility] Address [address] [place] [address] Care Team Providers Care Electrification Adviser Name Role Phone Tamica Merida MD Primary Care Provider +1 [phone] Encounter Details Date Type Department Care Team (Late st Contact Info) Description 02/23/2022 Conversion Encounter [facility] HISTORICAL DATA CONVERSIONS [address] [place] [address] Social History Tobacco Use Types Packs/Day Years [...] Legacy Communication - HISTORICAL PROVIDER, CONVERSION - 02/23/2022 8:57 AM EDT From: JESSICA CRAIG LPN ([facility]) To: GONZÁLEZ MATOS Sent: 02/23/2022 08:57:13 EDT Subject: RE: Dr. Tamica Merida - [facility]: Refill Jewel Cline we just sent a refill to your pharmacy please contact them to see when this will be ready for picker/puller. Entered by JESSICA CRAIG LPN on February 23, 2022 08:56:23 EDT Submitted: Order:losartan (losartan 50 mg oral tablet) 1 tablet ORAL Daily Qty: 90 tablet Refills: 0 Substitutions Allowed Route To Pharmacy - [facility]/pharmacy #[id number] Signed by JESSICA CRAIG LPN 02/23/2022 08:55:00 EDT Med Proposed: Did not meet [facility] medication refill standing orders criteria MARTIR: 08/24/21 NOV: none benja Med Written Last: 12/03/21 90 day supply Additional Information: From: GONZÁLEZ MATOS To: Dr. Tamica Merida - [facility] ([facility]) Sent: 02/22/2022 05:17 p.m. EDT Subject: Refill Thank you for your message. It has been successfully sent to the appropriate care team. Hi Doctor, I???m leaving for vacation Monday the 26 of February and right now I have 8 losartan potassium 50 MG left with no refill.. I won???t have any left by the time I get back..thank you, González Matos [facility] at [address] documented in this encounter Plan of Treatment Not on file documented as of this encounter Visit Diagnoses Not on filedocumented in this encounter Care Teams Electrification Adviser Relationship Specialty Start Date End Date Tamica Merida MD [address] [place] [phone] PCP - General Family Medicine 08/24/21 documented as of this encounter
--- OUTSIDE RECORDS SUMMARY | 2024-12-03 14:12 | XMS_ITS | Encounter Summary ---
Author Organization [facility] Address [address] [place] [address] Care Team Providers Care Health/Safety Job Titles Name Role Phone Tamica Merida MD Primary Care Provider [phone] [phone] Encounter Details Date Type Department Care Team (Late st Contact Info) Description 02/01/2022 Conversion Encounter [facility] [employer] HISTORICAL DATA CONVERSIONS [address] [place] [address] Social History Tobacco Use Types Packs/Day Years Used Date Smoking Tobacco: Never Assessed Comments Unknown Sex and Gender Information Value Date Recorded Sex Assigned at Female 08/19/2021 7:20 AM EST Legal Sex Female 3:11 PM EST Gender Identity Not on file Sexual Orientation Straight 08/11/2022 1: 02 PM EST documented as of this encounter Plan of Treatment Not on file documented as of this encounter Visit Diagnoses Not on filedocumented in this encounter Care Teams Health/Safety Job Titles Relationship Specialty Start Date End Date Tamica Merida MD [facility] [place] [facility] [address] [place] [phone] PCP - General Family Medicine 08/24/21 documented as of this encounter
== END 2024-12-03 12:27 | disposition home or self-care (01) ==
PROVIDERS: Visit Provider Physician Assistant
DX: J30.2 Other seasonal allergic rhinitis (principal); R00.0 Tachycardia, unspecified

== ENCOUNTER → 2024-12-03 11:40 | Outpatient (BNVA) | payer MEDICARE, SELFPAY | PROVIDERS: Visit Provider Physician Assistant | DX: J30.2 Other seasonal allergic rhinitis (principal); R00.0 Tachycardia, unspecified | CPT/HCPCS: 99202 ==